=== PATIENT | male | born 2000 | race Caucasian/White ===

== ENCOUNTER 2021-06-02 08:43 | Day surgery (SDC) | payer OTHER ==
[~2021-06-02] VITALS: Ht 180.3 cm; Wt 112.0 kg
[2021-06-02] MEDS ORDERED: KETOROLAC 60 MG/2 ML VIAL IM ONE (10:32)
[2021-06-02] MEDS ORDERED: LIDOCAINE 2% 100 MG/5 ML UJET TP ONE (10:57)
[2021-06-02] MEDS ORDERED: KETOROLAC 30 MG/ML VIAL IVP ONE (14:27)
== END 2021-06-02 11:17 | disposition home or self-care (01) ==
LOC: MDS 08:43 → MFCC 08:45 → MDS 11:17
PROVIDERS: ATTEND Internal Medicine Gastroenterology
DX: K62.89 Other specified diseases of anus and rectum (principal)
CPT/HCPCS: 45331; J1885